=== PATIENT | male | born 1935 | race Two or more races ===

== ENCOUNTER 2017-02-10 16:58 | Inpatient (IN) | payer MEDICARE, OTHER ==
[~2017-02-10] VITALS: Ht 152.4 cm; Wt 59.4 kg
[~2017-02-10 16:58] MED LIST: ASPI81TA27 PO; DILT120C65 PO; DOCU100T15 PO; LISI10TA6 PO
[2017-02-10 19:10] LABS: INR 1.12 (0.9-1.15); Partial Thromboplastin Time 31.3 sec (22.64-33.71); Prothrombin Time 11.5 sec (9.37-12.3)
[2017-02-10 19:12] LABS: Albumin 2.9 g/dL (3.4-5.0); Anion Gap 8 (5-15); Aspartate Aminotransferase 23 U/L (15-37); BUN/Creatinine Ratio 34.9; Blood Urea Nitrogen 29 mg/dL (7-18); Calcium 7.7 mg/dL (8.5-10.1); Carbon Dioxide 26 mmol/L (21-32); Chloride 110 mmol/L (98-107); GFR African American 115 mL/min; GFR Non-African American 95 mL/min; Glucose 81 mg/dL (74-106); Potassium 3.6 mmol/L (3.5-5.1); Sodium 144 mmol/L (136-145)
[2017-02-10 19:16] LABS: Alkaline Phosphatase 100 U/L (45-117); Bilirubin, Total 0.6 mg/dL (0.2-1.0); Total Protein 6.2 g/dL (6.4-8.2)
[2017-02-10 19:27] LABS: Basophils # (auto) 0.1 uL; Basophils % (auto) 0.8 % (0.0-2.0); DEFINITIVE VIEW TRANSMISSION; Eosinophils # (auto) 0.4 uL; Eosinophils % (auto) 5.1 % (0.0-7.0); Hemoglobin 14.7 g/dL (13.5-17.5); Lymphocytes % (auto) 24.2 % (10.0-50.0); Mean Corpuscular Hemoglobin 28.4 pg (28.0-32.0); Mean Corpuscular Hgb Conc. 33.4 g/dL (32.0-36.0); Mean Corpuscular Volume 85.2 fL (80.0-100.0); Mean Platelet Volume 7.9 fL (7.4-10.4); Monocytes # (auto) 0.7 uL; Monocytes % (auto) 8.7 % (0.0-12.0); Neutrophils # (auto) 5.1 uL; Neutrophils % (auto) 61.2 % (37.0-80.0); Platelet Count (auto) 507 10^3/uL (140-450); Red Cell Distribution Width 19.4 % (11.6-16.0); White Blood Cell 8.4 10^3/uL (4.4-10.8)
[2017-02-10] MEDS ORDERED: PANTOPRAZOLE SODIUM 40 MG/10 ML VIAL IV ONE (20:00)
[2017-02-10] MEDS ORDERED: PROMETHAZINE HCL 25 MG/ML 1ML IV PRN (20:00)
[2017-02-10] MEDS ORDERED: NITROGLYCERIN 0.4 MG SL TAB SL PRN (20:00)
[2017-02-10] MEDS ORDERED: MORPHINE SULF INJ 2 MG/ML SYRINGE 1ML IV PRN ×2 (20:00)
[2017-02-10] MEDS ORDERED: LORazepam 0.5 MG TAB PO PRN (20:00)
[2017-02-10] MEDS ORDERED: TEMAZEPAM 15 MG CAP PO PRN (20:00)
[2017-02-10] MEDS ORDERED: LACTULOSE 20Gm/30ML SOLN PO PRN (20:00)
[2017-02-10] MEDS ORDERED: ACETAMINOPHEN 500 MG TAB PO PRN (20:00)
[2017-02-10] MEDS ORDERED: DOCUSATE SOD 100 MG CAP PO PRN (20:15)
[2017-02-10 20:18] LABS: Platelet Estimate Increased
[2017-02-10 20:19] LABS: Anisocytosis Slight
[2017-02-10] MEDS ORDERED: LEVOFLOXACIN 500MG 100 ML IV ONE (20:30)
[2017-02-10] MEDS: SODIUM CHLORIDE 0.9% 1,000 ML IV SCH (20:33)
[2017-02-10 21:43] LABS: Urine Bilirubin Negative (Negative); Urine Blood Negative /uL (Negative); Urine Color Yellow (Yellow); Urine Glucose Normal (Normal); Urine Ketone Negative (Negative); Urine Mucus FEW (None Seen); Urine Nitrite Negative (Negative); Urine RBC 1 /hpf (0 - 3); Urine Squamous Epithelial Cell FEW /hpf (<5); Urine pH 5.5 (5.0-8.0)
[2017-02-10 21:56] VITALS: BP 133/77
[2017-02-10] MEDS: metroNIDAZOLE 500MG/100ML 100 ML IV SCH (22:26)
[2017-02-11 00:47] LABS: Hematocrit 37.8 % (41.0-53.0); Hemoglobin 12.5 g/dL (13.5-17.5)
[2017-02-11] MEDS: SODIUM CHLORIDE 0.9% 1,000 ML IV SCH ×4 (03:58→06:07)
[2017-02-11 05:27] VITALS: BP 149/67
[2017-02-11] MEDS: metroNIDAZOLE 500MG/100ML 100 ML IV SCH ×3 (06:07→21:43)
[2017-02-11 06:20] LABS: Hematocrit 36.9 % (41.0-53.0); Hemoglobin 12.4 g/dL (13.5-17.5)
[2017-02-11 09:00] VITALS: BP 130/66
[2017-02-11] MEDS: LEVOFLOXACIN 500MG 100 ML IV SCH (10:00)
[2017-02-11] MEDS: PANTOPRAZOLE 40 MG TAB PO SCH (10:00)
[2017-02-11] MEDS: DILTIAZEM HCL 120MG ER CAP PO SCH (10:00)
[2017-02-11 12:10] LABS: Hemoglobin 12.1 g/dL (13.5-17.5)
[2017-02-11 13:00] VITALS: BP 136/70
[2017-02-11] MEDS ORDERED: GOLYTELY 4L KIT PO ONE (15:45)
[2017-02-11 17:00] VITALS: BP 114/69
[2017-02-11 21:30] VITALS: BP 116/71
[2017-02-12] VITALS (7 sets, daily range): BP systolic 131–143; BP diastolic 66–78
[2017-02-12] MEDS: metroNIDAZOLE 500MG/100ML 100 ML IV SCH ×4 (05:48→22:29)
[2017-02-12 06:27] LABS: Basophils # (auto) 0.1 uL; Basophils % (auto) 0.9 % (0.0-2.0); DEFINITIVE VIEW TRANSMISSION; Eosinophils # (auto) 0.6 uL; Eosinophils % (auto) 7.9 % (0.0-7.0); Hematocrit 34.9 % (41.0-53.0); Hemoglobin 11.3 g/dL (13.5-17.5); Lymphocytes # (auto) 2.1 uL; Lymphocytes % (auto) 27.9 % (10.0-50.0); Mean Corpuscular Hgb Conc. 32.3 g/dL (32.0-36.0); Mean Corpuscular Volume 86.7 fL (80.0-100.0); Mean Platelet Volume 7.3 fL (7.4-10.4); Monocytes # (auto) 0.5 uL; Monocytes % (auto) 6.9 % (0.0-12.0); Neutrophils # (auto) 4.2 uL; Neutrophils % (auto) 56.4 % (37.0-80.0); Platelet Count (auto) 380 10^3/uL (140-450); White Blood Cell 7.4 10^3/uL (4.4-10.8)
[2017-02-12] MEDS ORDERED: LIDOCAINE 2%HCL (LOCAL ANESTH.) INJ 20ML MDV ONE (07:15)
[2017-02-12] MEDS ORDERED: fentaNYL CITRATE 100 MCG/2 ML VL ONE (08:18)
[2017-02-12] MEDS ORDERED: SODIUM CHLORIDE LOCK 10 ML ONE (08:18)
[2017-02-12] MEDS ORDERED: MIDAZOLAM HCL 5 MG/ML-1ML VIAL ONE (08:18)
[2017-02-12] MEDS ORDERED: diphenhdrAMINE HCL 50 MG/1 ML VL ONE (08:19)
[2017-02-12] MEDS: DILTIAZEM HCL 120MG ER CAP PO SCH (10:00)
[2017-02-12] MEDS: PANTOPRAZOLE 40 MG TAB PO SCH (10:00)
[2017-02-12] MEDS: LEVOFLOXACIN 500MG 100 ML IV SCH (10:00)
[2017-02-13] MEDS: HYDROcodone-ACET 5/325MG TAB PO PRN ×2 (03:53→21:46)
[2017-02-13 05:00] VITALS: BP 131/71
[2017-02-13] MEDS: metroNIDAZOLE 500MG/100ML 100 ML IV SCH ×3 (06:32→21:40)
[2017-02-13] MEDS: LEVOFLOXACIN 500MG 100 ML IV SCH (09:25)
[2017-02-13] MEDS: DILTIAZEM HCL 120MG ER CAP PO SCH (11:20)
[2017-02-13] MEDS: PANTOPRAZOLE 40 MG TAB PO SCH (11:20)
[2017-02-13] MEDS: SODIUM CHLORIDE 0.9% 1,000 ML IV SCH ×2 (11:21→11:22)
[2017-02-13 20:00] VITALS: BP 142/85
[2017-02-13 22:00] VITALS: BP 142/85
[2017-02-14] MEDS: SODIUM CHLORIDE 0.9% 1,000 ML IV SCH ×2 (04:20→11:43)
[2017-02-14 05:00] VITALS: BP 146/78
[2017-02-14] MEDS: metroNIDAZOLE 500MG/100ML 100 ML IV SCH ×3 (06:12→22:43)
[2017-02-14 09:15] VITALS: BP 128/64
[2017-02-14] MEDS: DILTIAZEM HCL 120MG ER CAP PO SCH (11:40)
[2017-02-14] MEDS: PANTOPRAZOLE 40 MG TAB PO SCH (11:40)
[2017-02-14] MEDS: LEVOFLOXACIN 500MG 100 ML IV SCH (11:43)
[2017-02-14 12:39] VITALS: BP 126/69
[2017-02-14 17:00] VITALS: BP 140/68
[2017-02-14 20:00] VITALS: BP 146/73
[2017-02-14] MEDS: HYDROcodone-ACET 5/325MG TAB PO PRN (21:09)
[2017-02-14 22:00] VITALS: BP 146/73
[2017-02-15] MEDS: SODIUM CHLORIDE 0.9% 1,000 ML IV SCH ×3 (03:56→19:58)
[2017-02-15 05:00] VITALS: BP 138/70
[2017-02-15] MEDS: metroNIDAZOLE 500MG/100ML 100 ML IV SCH ×3 (06:03→22:28)
[2017-02-15 08:20] VITALS: BP 122/68
[2017-02-15] MEDS: PANTOPRAZOLE 40 MG TAB PO SCH (10:28)
[2017-02-15] MEDS: DILTIAZEM HCL 120MG ER CAP PO SCH (10:28)
[2017-02-15] MEDS: LEVOFLOXACIN 500MG 100 ML IV SCH (10:28)
[2017-02-15 11:50] VITALS: BP 130/70
[2017-02-15 16:47] VITALS: BP 130/66
[2017-02-15 20:00] VITALS: BP 144/71
[2017-02-15] MEDS: HYDROcodone-ACET 5/325MG TAB PO PRN (20:36)
[2017-02-15 22:00] VITALS: BP 144/71
[2017-02-16] MEDS: SODIUM CHLORIDE 0.9% 1,000 ML IV SCH ×3 (03:17→19:58)
[2017-02-16 05:00] VITALS: BP 144/74
[2017-02-16] MEDS: HYDROcodone-ACET 5/325MG TAB PO PRN ×2 (05:28→18:18)
[2017-02-16] MEDS: metroNIDAZOLE 500MG/100ML 100 ML IV SCH (05:29)
[2017-02-16 08:00] VITALS: BP 132/58
[2017-02-16 09:00] VITALS: BP 132/58
[2017-02-16] MEDS: DILTIAZEM HCL 120MG ER CAP PO SCH (10:00)
[2017-02-16] MEDS: PANTOPRAZOLE 40 MG TAB PO SCH (10:32)
[2017-02-16] MEDS: LEVOFLOXACIN 500MG 100 ML IV SCH (10:33)
[2017-02-16 17:00] VITALS: BP 140/72
[2017-02-16 20:00] VITALS: BP 149/70
[2017-02-16 21:34] VITALS: BP 149/70
[2017-02-17] MEDS: SODIUM CHLORIDE 0.9% 1,000 ML IV SCH ×3 (04:55→21:51)
[2017-02-17 05:47] VITALS: BP 120/62
[2017-02-17 09:00] VITALS: BP 151/80
[2017-02-17] MEDS: DILTIAZEM HCL 120MG ER CAP PO SCH (09:24)
[2017-02-17] MEDS: PANTOPRAZOLE 40 MG TAB PO SCH (09:25)
[2017-02-17 17:00] VITALS: BP 134/78
[2017-02-17 20:00] VITALS: BP 152/79
[2017-02-17] MEDS: HYDROcodone-ACET 5/325MG TAB PO PRN (21:27)
[2017-02-17 22:00] VITALS: BP 152/79
[2017-02-18] MEDS: SODIUM CHLORIDE 0.9% 1,000 ML IV SCH ×2 (03:55→11:58)
[2017-02-18 05:30] VITALS: BP 135/94
[2017-02-18 09:00] VITALS: BP 140/67
[2017-02-18] MEDS: PANTOPRAZOLE 40 MG TAB PO SCH (10:15)
[2017-02-18] MEDS: DILTIAZEM HCL 120MG ER CAP PO SCH (10:16)
[2017-02-18 13:00] VITALS: BP 128/70
[2017-02-18 15:10] VITALS: BP 128/70
[2017-02-18] MEDS: HYDROcodone-ACET 5/325MG TAB PO PRN (16:52)
== END 2017-02-18 17:20 | disposition hospice, home (50) | DRG 375 ==
LOC: ER 17:04 → TELE 17:05 → TELE-WESTW 21:55
PROVIDERS: ADMIT Internal Medicine; ATTEND Internal Medicine Pulmonary Disease
PROC: 0DBP8ZX Excision of Rectum, Via Natural or Artificial Opening Endoscopic, Diagnostic (ICD-10-PCS; 2017-02-12)
PROC: 05HM33Z Insertion of Infusion Device into Right Internal Jugular Vein, Percutaneous Approach (ICD-10-PCS; 2017-02-12)
PROC: B543ZZA Ultrasonography of Right Jugular Veins, Guidance (ICD-10-PCS; 2017-02-12)
PROC: 0DBF8ZX Excision of Right Large Intestine, Via Natural or Artificial Opening Endoscopic, Diagnostic (ICD-10-PCS; principal; 2017-02-12 08:52)
DX: C18.6 Malignant neoplasm of descending colon (principal); G82.20 Paraplegia, unspecified; C78.7 Secondary malignant neoplasm of liver and intrahepatic bile duct; I82.402 Acute embolism and thrombosis of unspecified deep veins of left lower extremity; R16.0 Hepatomegaly, not elsewhere classified; I71.4 Abdominal aortic aneurysm, without rupture; N40.0 Benign prostatic hyperplasia without lower urinary tract symptoms; I10 Essential (primary) hypertension; F03.90 Unspecified dementia, unspecified severity, without behavioral disturbance, psychotic disturbance, mood disturbance, and anxiety; K59.00 Constipation, unspecified; M40.205 Unspecified kyphosis, thoracolumbar region; N13.9 Obstructive and reflux uropathy, unspecified; K63.5 Polyp of colon; Z79.4 Long term (current) use of insulin; Z90.49 Acquired absence of other specified parts of digestive tract; Z82.3 Family history of stroke; Z82.49 Family history of ischemic heart disease and other diseases of the circulatory system; Z82.5 Family history of asthma and other chronic lower respiratory diseases; Z79.899 Other long term (current) drug therapy; Z87.440 Personal history of urinary (tract) infections; Z90.89 Acquired absence of other organs
CPT/HCPCS: 36415; 71010; 74176; 76000; 76705; 76937; 80053; 81001; 82150; 82270; 82378; 83690; 83735; 84484; 85014; 85018; 85025; 85045; 85610; 85652; 85730; 86141; 86850; 86900; 86901; 87493; 93005; 93970; 96365; 96375; 97001; 99152; C1769; C9113; J1956; J2250; J3490

== ENCOUNTER 2017-02-19 13:47 | Emergency (ER) | payer MEDICARE, OTHER ==
[~2017-02-19] VITALS: Ht 175.3 cm; Wt 59.0 kg
[2017-02-19 14:23] LABS: Basophils # (auto) 0 uL; Basophils % (auto) 0.5 % (0.0-2.0); Eosinophils # (auto) 0.5 uL; Eosinophils % (auto) 5.4 % (0.0-7.0); Hematocrit 38.1 % (41.0-53.0); Hemoglobin 12.4 g/dL (13.5-17.5); Lymphocytes # (auto) 1.9 uL; Lymphocytes % (auto) 19.1 % (10.0-50.0); Mean Corpuscular Hemoglobin 28.2 pg (28.0-32.0); Mean Corpuscular Hgb Conc. 32.6 g/dL (32.0-36.0); Mean Corpuscular Volume 86.4 fL (80.0-100.0); Mean Platelet Volume 7.5 fL (7.4-10.4); Monocytes # (auto) 0.4 uL; Monocytes % (auto) 4.5 % (0.0-12.0); Neutrophils # (auto) 6.9 uL; Neutrophils % (auto) 70.5 % (37.0-80.0); Platelet Count (auto) 391 10^3/uL (140-450); Red Cell Distribution Width 18.7 % (11.6-16.0); White Blood Cell 9.7 10^3/uL (4.4-10.8)
[2017-02-19 14:58] VITALS: BP 114/35
[2017-02-19 14:58] LABS: Albumin 2.6 g/dL (3.4-5.0); Alkaline Phosphatase 81 U/L (45-117); Anion Gap 10 (5-15); Aspartate Aminotransferase 20 U/L (15-37); BUN/Creatinine Ratio 16.8; Bilirubin, Total 0.6 mg/dL (0.2-1.0); Blood Urea Nitrogen 16 mg/dL (7-18); Calcium 7.8 mg/dL (8.5-10.1); Carbon Dioxide 26 mmol/L (21-32); Chloride 113 mmol/L (98-107); GFR African American 98 mL/min; GFR Non-African American 81 mL/min; Glucose 145 mg/dL (74-106); Potassium 3.1 mmol/L (3.5-5.1); Sodium 149 mmol/L (136-145); Total Protein 5.8 g/dL (6.4-8.2)
== END 2017-02-19 16:35 | disposition home or self-care (01) ==
LOC: EDBD 13:47 → ER 13:51
DX: R55 Syncope and collapse (principal); I10 Essential (primary) hypertension; Z87.440 Personal history of urinary (tract) infections; Z85.038 Personal history of other malignant neoplasm of large intestine; Z90.49 Acquired absence of other specified parts of digestive tract; Z90.89 Acquired absence of other organs; Z98.890 Other specified postprocedural states
CPT/HCPCS: 36415; 70450; 80053; 84484; 85025; 93005

== ENCOUNTER → 2017-11-18 | Outpatient (CLI) | payer MEDICARE, OTHER ==
[~2017-11-18] MED LIST changes: +CAPE1TAB11 PO; +CHOL20007 OR; +CHOL20007 PO; -DOCU100T15 PO; +HYDR-4683 GT; +MET500T PO
[2017-11-18 11:57] LABS: Basophils # (auto) 0.1 uL; Basophils % (auto) 1.3 % (0.0-2.0); Eosinophils # (auto) 0.5 uL; Eosinophils % (auto) 8.5 % (0.0-7.0); Hematocrit 41.2 % (41.0-53.0); Hemoglobin 13.7 g/dL (13.5-17.5); Lymphocytes # (auto) 1.8 uL; Lymphocytes % (auto) 31.8 % (10.0-50.0); Mean Corpuscular Hemoglobin 31.8 pg (28.0-32.0); Mean Corpuscular Hgb Conc. 33.2 g/dL (32.0-36.0); Mean Platelet Volume 7.1 fL (6.9-10.8); Monocytes # (auto) 0.7 uL; Monocytes % (auto) 11.4 % (0.0-12.0); Neutrophils # (auto) 2.7 uL; Nucleated Red Blood Cells % 0.1 %; Platelet Count (auto) 217 10^3/uL (140-450); White Blood Cell 5.7 10^3/uL (4.4-10.8)
[2017-11-18 12:04] LABS: Red Cell Distribution Width 23.5 % (11.8-14.3)
[2017-11-18 12:44] LABS: Albumin 3.6 g/dL (3.4-5.0); BUN/Creatinine Ratio 33.3; Bilirubin, Total 0.7 mg/dL (0.2-1.0); Calcium 8.6 mg/dL (8.5-10.1); Total Protein 7.2 g/dL (6.4-8.2)
[2017-11-18 14:53] LABS: Anisocytosis Moderate; Platelet Estimate Adequate
[2017-11-18 14:54] LABS: Ovalocytes FEW; Tear Drop Cells FEW
== END | disposition home or self-care (01) ==
LOC: LAB 11:25
PROVIDERS: ATTEND Internal Medicine
DX: C18.9 Malignant neoplasm of colon, unspecified (principal)
CPT/HCPCS: 36415; 80053; 82378; 83615; 85025

== ENCOUNTER → 2017-12-06 | Outpatient (CLI) | payer MEDICARE, OTHER ==
[2017-12-06 09:31] LABS: Basophils # (auto) 0.1 uL; Basophils % (auto) 1.2 % (0.0-2.0); Eosinophils # (auto) 0.6 uL; Eosinophils % (auto) 7.9 % (0.0-7.0); Hematocrit 36.5 % (41.0-53.0); Hemoglobin 12.3 g/dL (13.5-17.5); Lymphocytes # (auto) 1.9 uL; Lymphocytes % (auto) 26.9 % (10.0-50.0); Mean Corpuscular Hemoglobin 31.2 pg (28.0-32.0); Mean Corpuscular Hgb Conc. 33.7 g/dL (32.0-36.0); Mean Corpuscular Volume 92.8 fL (80.0-100.0); Monocytes # (auto) 0.8 uL; Monocytes % (auto) 11.9 % (0.0-12.0); Neutrophils # (auto) 3.7 uL; Neutrophils % (auto) 52.1 % (37.0-80.0); Nucleated Red Blood Cells % 0.1 %; Platelet Count (auto) 216 10^3/uL (140-450); Red Blood Cells 3.93 10^6/uL (4.5-5.90); White Blood Cell 7.1 10^3/uL (4.4-10.8)
[2017-12-06 09:33] LABS: Red Cell Distribution Width 21.6 % (11.8-14.3)
[2017-12-06 09:58] LABS: Potassium 3.7 mmol/L (3.5-5.1)
[2017-12-06 09:59] LABS: BUN/Creatinine Ratio 23.6; Bilirubin, Total 0.8 mg/dL (0.2-1.0); Calcium 8.4 mg/dL (8.5-10.1); Total Protein 6.6 g/dL (6.4-8.2)
== END | disposition home or self-care (01) ==
LOC: LAB 08:57
PROVIDERS: ATTEND Internal Medicine
DX: C18.9 Malignant neoplasm of colon, unspecified (principal)
CPT/HCPCS: 36415; 80053; 83615; 85025

== ENCOUNTER → 2017-12-17 | Outpatient (CLI) | payer MEDICARE, OTHER ==
[2017-12-17 09:24] LABS: Basophils # (auto) 0.1 uL; Basophils % (auto) 1.4 % (0.0-2.0); Eosinophils # (auto) 0.6 uL; Eosinophils % (auto) 10.4 % (0.0-7.0); Hematocrit 37.9 % (41.0-53.0); Hemoglobin 12.7 g/dL (13.5-17.5); Lymphocytes # (auto) 2.2 uL; Lymphocytes % (auto) 36.4 % (10.0-50.0); Mean Corpuscular Hgb Conc. 33.4 g/dL (32.0-36.0); Mean Corpuscular Volume 92.8 fL (80.0-100.0); Monocytes # (auto) 0.6 uL; Monocytes % (auto) 10.3 % (0.0-12.0); Neutrophils # (auto) 2.5 uL; Neutrophils % (auto) 41.5 % (37.0-80.0); Platelet Count (auto) 267 10^3/uL (140-450); Red Blood Cells 4.09 10^6/uL (4.5-5.90)
[2017-12-17 09:30] LABS: Red Cell Distribution Width 23.3 % (11.8-14.3)
[2017-12-17 09:54] LABS: Albumin 3.4 g/dL (3.4-5.0); BUN/Creatinine Ratio 24.7; Bilirubin, Total 0.7 mg/dL (0.2-1.0); Calcium 8.6 mg/dL (8.5-10.1); Potassium 3.6 mmol/L (3.5-5.1); Total Protein 7.2 g/dL (6.4-8.2)
== END | disposition home or self-care (01) ==
LOC: LAB 09:02
PROVIDERS: ATTEND Internal Medicine
DX: C18.9 Malignant neoplasm of colon, unspecified (principal)
CPT/HCPCS: 36415; 80053; 82378; 83615; 85025

== ENCOUNTER → 2018-01-10 | Outpatient (CLI) | payer MEDICARE, OTHER ==
[2018-01-10 10:13] LABS: Basophils # (auto) 0.1 uL; Basophils % (auto) 1.4 % (0.0-2.0); Eosinophils # (auto) 0.7 uL; Eosinophils % (auto) 12.5 % (0.0-7.0); Hematocrit 36.7 % (41.0-53.0); Hemoglobin 12.2 g/dL (13.5-17.5); Lymphocytes % (auto) 34.1 % (10.0-50.0); Mean Corpuscular Hemoglobin 31.7 pg (28.0-32.0); Mean Corpuscular Hgb Conc. 33.2 g/dL (32.0-36.0); Mean Corpuscular Volume 95.4 fL (80.0-100.0); Monocytes # (auto) 0.5 uL; Monocytes % (auto) 7.7 % (0.0-12.0); Neutrophils # (auto) 2.6 uL; Neutrophils % (auto) 44.3 % (37.0-80.0); Platelet Count (auto) 257 10^3/uL (140-450); Red Blood Cells 3.85 10^6/uL (4.5-5.90); White Blood Cell 5.9 10^3/uL (4.4-10.8)
[2018-01-10 10:32] LABS: Red Cell Distribution Width 26.7 % (11.8-14.3)
[2018-01-10 11:58] LABS: Albumin 3.2 g/dL (3.4-5.0); BUN/Creatinine Ratio 33.8; Bilirubin, Total 0.7 mg/dL (0.2-1.0); Calcium 8.9 mg/dL (8.5-10.1); Potassium 3.6 mmol/L (3.5-5.1); Total Protein 7.2 g/dL (6.4-8.2)
== END | disposition home or self-care (01) ==
LOC: LAB 09:15
PROVIDERS: ATTEND Internal Medicine
DX: C18.9 Malignant neoplasm of colon, unspecified (principal)
CPT/HCPCS: 36415; 80053; 82378; 83615; 85025

== ENCOUNTER 2018-02-16 10:59 | Emergency (ER) | payer MEDICARE, OTHER ==
[~2018-02-16] VITALS: Ht 182.9 cm; Wt 58.1 kg
[2018-02-16 11:07] VITALS: BP 139/76
[2018-02-16 11:39] LABS: Basophils # (auto) 0.1 uL; Basophils % (auto) 1.5 % (0.0-2.0); Eosinophils % (auto) 13.3 % (0.0-7.0); Hematocrit 34.8 % (41.0-53.0); Hemoglobin 11.6 g/dL (13.5-17.5); Lymphocytes % (auto) 26.2 % (10.0-50.0); Mean Corpuscular Hemoglobin 31.2 pg (28.0-32.0); Mean Corpuscular Hgb Conc. 33.5 g/dL (32.0-36.0); Mean Corpuscular Volume 93.1 fL (80.0-100.0); Monocytes # (auto) 0.7 uL; Monocytes % (auto) 9.1 % (0.0-12.0); Neutrophils # (auto) 3.8 uL; Neutrophils % (auto) 49.9 % (37.0-80.0); Nucleated Red Blood Cells % 0.1 %; Platelet Count (auto) 232 10^3/uL (140-450); Red Blood Cells 3.73 10^6/uL (4.5-5.90); Red Cell Distribution Width 19.8 % (11.8-14.3); White Blood Cell 7.6 10^3/uL (4.4-10.8)
[2018-02-16 11:50] LABS: INR 0.97 (0.9-1.15); Partial Thromboplastin Time 26.8 sec (22.64-33.71); Prothrombin Time 10.6 sec (9.37-12.3)
[2018-02-16 12:22] LABS: Albumin 3.2 g/dL (3.4-5.0); BUN/Creatinine Ratio 31.1; Bilirubin, Total 0.5 mg/dL (0.2-1.0); Calcium 8.2 mg/dL (8.5-10.1); Potassium 3.6 mmol/L (3.5-5.1); Total Protein 7.1 g/dL (6.4-8.2)
== END 2018-02-16 11:42 | disposition left against medical advice (07) ==
LOC: ER 10:59
DX: R04.0 Epistaxis (principal); Z53.21 Procedure and treatment not carried out due to patient leaving prior to being seen by health care provider
CPT/HCPCS: 36415; 80053; 85025; 85610; 85730

== ENCOUNTER 2018-07-10 10:47 | Inpatient (IN) | payer OTHER ==
[~2018-07-10] VITALS: Ht 167.6 cm; Wt 77.1 kg
[2018-07-10 11:48] LABS: Basophils # (auto) 0.1 uL; Hematocrit 25.4 % (41.0-53.0); Hemoglobin 7.7 g/dL (13.5-17.5); Mean Corpuscular Hgb Conc. 30.4 g/dL (32.0-36.0); Monocytes # (auto) 0.6 uL; Red Blood Cells 3.76 10^6/uL (4.5-5.90); White Blood Cell 5.7 10^3/uL (4.4-10.8)
[2018-07-10 11:51] LABS: Basophils % (auto) 1.9 % (0.0-2.0); Eosinophils # (auto) 0.3 uL; Eosinophils % (auto) 4.6 % (0.0-7.0); Lymphocytes # (auto) 1.1 uL; Lymphocytes % (auto) 18.5 % (10.0-50.0); Mean Corpuscular Hemoglobin 20.5 pg (28.0-32.0); Mean Corpuscular Volume 67.5 fL (80.0-100.0); Monocytes % (auto) 10.1 % (0.0-12.0); Neutrophils # (auto) 3.7 uL; Neutrophils % (auto) 64.9 % (37.0-80.0); Platelet Count (auto) 294 10^3/uL (140-450)
[2018-07-10 11:54] LABS: Red Cell Distribution Width 21.4 % (11.8-14.3)
[2018-07-10] MEDS ORDERED: SODIUM CHLORIDE 0.9% 1,000 ML IV ONE (12:08)
[2018-07-10 12:12] LABS: Alanine Aminotransferase 25 U/L (16-61); Albumin 2.5 g/dL (3.4-5.0); Alkaline Phosphatase 328 U/L (45-117); Anion Gap 9 (5-15); Aspartate Aminotransferase 70 U/L (15-37); BUN/Creatinine Ratio 27.1; Bilirubin, Total 1.1 mg/dL (0.2-1.0); Blood Urea Nitrogen 23 mg/dL (7-18); Carbon Dioxide 22 mmol/L (21-32); Chloride 115 mmol/L (98-107); GFR African American 111 mL/min; GFR Non-African American 92 mL/min; Glucose 82 mg/dL (74-106); Magnesium 2.5 mg/dL (1.6-2.6); Potassium 3.5 mmol/L (3.5-5.1); Sodium 146 mmol/L (136-145); Total Protein 6.8 g/dL (6.4-8.2)
[2018-07-10 12:39] LABS: Urine Bacteria MOD /hpf (None Seen); Urine Blood 1+ /uL (Negative); Urine Specific Gravity 1.021 (1.001-1.035); Urine WBC 6 /hpf (0 - 3)
[2018-07-10 12:48] LABS: INR 1.08 (0.9-1.15); Partial Thromboplastin Time 26.6 sec (23.78-33.04); Prothrombin Time 11.5 sec (9.27-12.13)
[2018-07-10 12:51] LABS: Alcohol, Urine < 3.0 mg/dL (0-5); Amphetamine Screen, Urine NEGATIVE (NEGATIVE); Barbiturate Scree,Urine NEGATIVE (NEGATIVE); Benzodiazephine Screen, Urine NEGATIVE (NEGATIVE); Cannabinoid Screen, Urine NEGATIVE (NEGATIVE); Cocaine Screen, Urine NEGATIVE (NEGATIVE); Opiate Scree,Urine NEGATIVE (NEGATIVE); Phencyclidine Screen, Urine NEGATIVE (NEGATIVE)
[2018-07-10] MEDS ORDERED: cefTRIAXone 1GM/10ml IVPUSH 10 ML IV ONE (15:15)
[2018-07-10] MEDS ORDERED: IOHEXOL 350 MG/ML 100ML IJ ONE (15:52)
[2018-07-10] MEDS ORDERED: MORPHINE SULF INJ 2 MG/ML SYRINGE 1ML IV PRN ×2 (17:45)
[2018-07-10] MEDS ORDERED: NITROGLYCERIN 0.4 MG SL TAB SL PRN (17:45)
[2018-07-10] MEDS ORDERED: TEMAZEPAM 15 MG CAP PO PRN (17:45)
[2018-07-10] MEDS ORDERED: ALBUTEROL SULF 2.5 MG/0.5ML(0.5%) NEB SOLN NEB PRN (17:45)
[2018-07-10] MEDS ORDERED: HYDROcodone-ACET 5/325MG TAB PO PRN (17:45)
[2018-07-10] MEDS ORDERED: LORazepam 0.5 MG TAB PO PRN (17:45)
[2018-07-10] MEDS ORDERED: ACETAMINOPHEN 500 MG TAB PO PRN (17:45)
[2018-07-10] MEDS ORDERED: PANTOPRAZOLE 40 MG/10 ML VIAL IV ONE (17:45)
[2018-07-10] MEDS ORDERED: PROMETHAZINE HCL 25 MG/ML 1ML IV PRN (17:45)
[2018-07-10] MEDS: SODIUM CHLORIDE 0.9% 1,000 ML IV SCH ×2 (18:05→22:00)
[2018-07-10] MEDS: AZITHROMYCIN 500MG/ 250ML 250 ML IV SCH ×2 (18:11→22:00)
[2018-07-10 19:51] VITALS: BP 125/70
[2018-07-10 21:51] VITALS: BP 112/69
[2018-07-10 21:57] LABS: Hematocrit 25.2 % (41.0-53.0); Hemoglobin 7.6 g/dL (13.5-17.5)
[2018-07-10] MEDS ORDERED: PANTOPRAZOLE 40 MG TAB PO SCH (22:00)
[2018-07-10 22:22] VITALS: BP 125/70
[2018-07-11 00:56] LABS: Hematocrit 26.9 % (41.0-53.0)
[2018-07-11 05:02] VITALS: BP 132/59
[2018-07-11 06:33] LABS: Basophils # (auto) 0.1 uL; Hemoglobin 8.5 g/dL (13.5-17.5); Neutrophils # (auto) 6.1 uL
[2018-07-11 06:35] LABS: Basophils % (auto) 1.1 % (0.0-2.0); Eosinophils # (auto) 0.2 uL; Eosinophils % (auto) 2.9 % (0.0-7.0); Hematocrit 27.6 % (41.0-53.0); Lymphocytes # (auto) 1.3 uL; Lymphocytes % (auto) 15.3 % (10.0-50.0); Mean Corpuscular Hgb Conc. 30.8 g/dL (32.0-36.0); Mean Corpuscular Volume 68.1 fL (80.0-100.0); Monocytes # (auto) 0.6 uL; Monocytes % (auto) 7.6 % (0.0-12.0); Neutrophils % (auto) 73.1 % (37.0-80.0); Nucleated Red Blood Cells % 0.1 %; Platelet Count (auto) 303 10^3/uL (140-450); Red Blood Cells 4.05 10^6/uL (4.5-5.90); White Blood Cell 8.4 10^3/uL (4.4-10.8)
[2018-07-11 06:54] LABS: Albumin 2.4 g/dL (3.4-5.0); BUN/Creatinine Ratio 26.9; Calcium 8.2 mg/dL (8.5-10.1); Potassium 3.7 mmol/L (3.5-5.1)
[2018-07-11 06:57] LABS: Total Protein 6.8 g/dL (6.4-8.2)
[2018-07-11 07:00] LABS: Red Cell Distribution Width 21.2 % (11.8-14.3)
[2018-07-11 09:00] VITALS: BP 119/82
[2018-07-11] MEDS ORDERED: cefTRIAXone 1GM/10ml IVPUSH 10 ML IV SCH (09:00)
[2018-07-11] MEDS ORDERED: PANTOPRAZOLE 40 MG TAB PO SCH (10:00)
[2018-07-11 10:48] LABS: Folate (Folic Acid) 5.91 ng/mL (5.38-24)
[2018-07-11 13:00] VITALS: BP 110/85
== END 2018-07-11 16:30 | disposition short-term general hospital (02) | DRG 70 ==
LOC: ER 10:47 → EDBD 10:47 → WEST WING 10:48 → TELE-WESTW 23:19
PROVIDERS: ADMIT Internal Medicine; ATTEND Family Medicine
DX: G93.40 Encephalopathy, unspecified (principal); E43 Unspecified severe protein-calorie malnutrition; N39.0 Urinary tract infection, site not specified; C78.7 Secondary malignant neoplasm of liver and intrahepatic bile duct; I25.810 Atherosclerosis of coronary artery bypass graft(s) without angina pectoris; D63.8 Anemia in other chronic diseases classified elsewhere; E11.51 Type 2 diabetes mellitus with diabetic peripheral angiopathy without gangrene; F03.90 Unspecified dementia, unspecified severity, without behavioral disturbance, psychotic disturbance, mood disturbance, and anxiety; G31.9 Degenerative disease of nervous system, unspecified; I11.9 Hypertensive heart disease without heart failure; I70.90 Unspecified atherosclerosis; E86.0 Dehydration; I49.3 Ventricular premature depolarization; I70.0 Atherosclerosis of aorta; M47.812 Spondylosis without myelopathy or radiculopathy, cervical region; M47.814 Spondylosis without myelopathy or radiculopathy, thoracic region; Z82.3 Family history of stroke; Z82.49 Family history of ischemic heart disease and other diseases of the circulatory system; Z82.5 Family history of asthma and other chronic lower respiratory diseases; Z85.038 Personal history of other malignant neoplasm of large intestine; Z90.49 Acquired absence of other specified parts of digestive tract; Z68.27 Body mass index [BMI] 27.0-27.9, adult; Z79.899 Other long term (current) drug therapy; Z79.82 Long term (current) use of aspirin
CPT/HCPCS: 36415; 51702; 70450; 71045; 71275; 80053; 80307; 81001; 82140; 82550; 82607; 82746; 83605; 83735; 83880; 84443; 84484; 85014; 85018; 85025; 85045; 85379; 85610; 85730; 87040; 87086; 87088; 87186; 93005; 93306; 94761; 96374; 96375; C9113; J0696

== ENCOUNTER 2018-07-20 11:15 | Emergency (ER) | payer OTHER ==
[~2018-07-20] VITALS: Ht 185.4 cm; Wt 81.6 kg
[2018-07-20 11:48] LABS: Basophils # (auto) 0.1 uL; Eosinophils # (auto) 0.2 uL; Hemoglobin 7.5 g/dL (13.5-17.5); Lymphocytes # (auto) 1.3 uL; Neutrophils # (auto) 4.1 uL; Nucleated Red Blood Cells % 0.1 %; Platelet Count (auto) 274 10^3/uL (140-450); White Blood Cell 6.2 10^3/uL (4.4-10.8)
[2018-07-20 11:49] LABS: Basophils % (auto) 2.3 % (0.0-2.0); Eosinophils % (auto) 3.7 % (0.0-7.0); Hematocrit 24.8 % (41.0-53.0); Lymphocytes % (auto) 20.7 % (10.0-50.0); Mean Corpuscular Hemoglobin 20.2 pg (28.0-32.0); Mean Corpuscular Hgb Conc. 30.3 g/dL (32.0-36.0); Mean Corpuscular Volume 66.8 fL (80.0-100.0); Monocytes # (auto) 0.5 uL; Monocytes % (auto) 8.1 % (0.0-12.0); Neutrophils % (auto) 65.2 % (37.0-80.0); Red Blood Cells 3.72 10^6/uL (4.5-5.90)
[2018-07-20 11:55] LABS: Red Cell Distribution Width 21.9 % (11.8-14.3)
[2018-07-20 12:06] LABS: Alanine Aminotransferase 33 U/L (16-61); Albumin 2.3 g/dL (3.4-5.0); Alkaline Phosphatase 361 U/L (45-117); Anion Gap 10 (5-15); Aspartate Aminotransferase 75 U/L (15-37); BUN/Creatinine Ratio 27.4; Bilirubin, Total 1.2 mg/dL (0.2-1.0); Blood Urea Nitrogen 23 mg/dL (7-18); Calcium 7.5 mg/dL (8.5-10.1); Carbon Dioxide 20 mmol/L (21-32); Chloride 116 mmol/L (98-107); GFR African American 113 mL/min; GFR Non-African American 93 mL/min; Glucose 84 mg/dL (74-106); Potassium 3.5 mmol/L (3.5-5.1); Sodium 146 mmol/L (136-145); Total Protein 6.4 g/dL (6.4-8.2)
[2018-07-20 13:31] VITALS: BP 125/72
[2018-07-20] MEDS ORDERED: SODIUM CHLORIDE 0.9% 1,000 ML IV SCH (15:50)
[2018-07-20] MEDS ORDERED: PANTOPRAZOLE 40 MG/10 ML VIAL IV ONE (16:00)
[2018-07-20] MEDS ORDERED: PROMETHAZINE HCL 25 MG/ML 1ML IV PRN (16:00)
[2018-07-20] MEDS ORDERED: LACTULOSE 20Gm/30ML SOLN PO PRN (16:00)
[2018-07-20] MEDS ORDERED: MORPHINE SULF INJ 2 MG/ML SYRINGE 1ML IV PRN ×2 (16:00)
[2018-07-20] MEDS ORDERED: TEMAZEPAM 15 MG CAP PO PRN (16:00)
[2018-07-20] MEDS ORDERED: NITROGLYCERIN 0.4 MG SL TAB SL PRN (16:00)
[2018-07-20] MEDS ORDERED: LORazepam 0.5 MG TAB PO PRN (16:00)
[2018-07-20] MEDS ORDERED: ACETAMINOPHEN 500 MG TAB PO PRN (16:00)
[2018-07-20] MEDS ORDERED: HYDROcodone-ACET 5/325MG TAB PO PRN (16:00)
[2018-07-20 16:17] LABS: Amylase 27 U/L (25-115); Creatine Kinase IFCC 78 U/L (39-308); Lipase 134 U/L (73-393)
[2018-07-20 16:29] LABS: Folate (Folic Acid) 5.66 ng/mL (5.38-24)
[2018-07-21] MEDS ORDERED: PANTOPRAZOLE 40 MG TAB PO SCH (10:00)
== END 2018-07-20 19:07 | disposition home or self-care (01) ==
LOC: ER 11:15 → EDBD 11:15 → ER 19:07
DX: R55 Syncope and collapse (principal); D64.9 Anemia, unspecified; C18.9 Malignant neoplasm of colon, unspecified; C78.7 Secondary malignant neoplasm of liver and intrahepatic bile duct; I10 Essential (primary) hypertension; Z90.49 Acquired absence of other specified parts of digestive tract
CPT/HCPCS: 36415; 71045; 80053; 82150; 82550; 82607; 82746; 82962; 83690; 84443; 84484; 85025; 85045